=== PATIENT | male | born 1960 | race Caucasian/White ===

== ENCOUNTER 2017-06-26 17:09 | Emergency (ER) | payer OTHER ==
[2017-06-26 17:23] VITALS: BP 122/82
--- NOTE | 2017-06-26 17:37 | UC ---
Hand/Wrist HPI - HPI Summary HPI Summary: right thumb injury about 6 days ago--small laceration near thumb nail - History Of Current Complaint Chief Complaint: UCUpperExtremity Stated Complaint: THUMB INJURY INFLAMMATION Time Seen by Provider: 06/26/17 17:36 Hx Obtained From: Patient ?: No Mechanism Of Injury: unsure Onset/Duration: Sudden Onset, Lasting Days - 6 Severity Initially: Mild Severity Currently: Mild Character Of Pain: Throbbing Aggravating Factor(s): Movement Alleviating Factor(s): Nothing Associated Signs And Symptoms: Positive: Redness Related History: Dominant Hand Right - Allergies/Home Medications Allergies/Adverse Reactions: Allergies Allergy/AdvReac Type Severity Reaction Status Date / Time Ciprofloxacin [From Cipro] Allergy Unknown Verified 06/26/17 17:23 Reaction Details Levofloxacin [From Levaquin] Allergy Unknown Verified 06/26/17 17:23 Reaction Details Moxifloxacin [From Avelox] Allergy Unknown Verified 06/26/17 17:23 Reaction Details PMH/Surg Hx/FS Hx/Imm Hx Previously Healthy: Yes - Surgical History Surgical History: Yes Surgery Procedure, Year, and Place: sinus surgery - Family History Known Family History: Positive: None - Social History Occupation: Employed Full-time Lives: With Family Alcohol Use: Rare Substance Use Type: None Smoking Status (MU): Never Smoked Tobacco Review of Systems Constitutional: Negative Skin: Negative Eyes: Negative ENT: Negative Respiratory: Negative Cardiovascular: Negative Gastrointestinal: Negative Genitourinary: Negative Motor: Negative Neurovascular: Negative Musculoskeletal: Arthralgia - right thumb pain Neurological: Negative Psychological: Negative Is Patient Immunocompromised?: No All Other Systems Reviewed And Are Negative: Yes Physical Exam Triage Information Reviewed: Yes Appearance: Well-Appearing, No Pain Distress, Well-Nourished Vital Signs: Initial Vital Signs Temp 97.1 F 06/26/17 17:18 Pulse 84 06/26/17 17:18 Resp 20 06/26/17 17:18 BP 122/82 06/26/17 17:18 Pulse Ox 100 06/26/17 17:18 Vital Signs Reviewed: Yes Eye Exam: Normal Eyes: Positive: Conjunctiva Clear ENT Exam: Normal ENT: Positive: Normal ENT inspection, Hearing grossly normal, Pharynx normal, TMs normal. Negative: Nasal drainage, Trismus, Muffled voice, Hoarse voice Dental Exam: Normal Neck exam: Normal Neck: Positive: Supple, Nontender, No Lymphadenopathy Respiratory Exam: Normal Respiratory: Positive: Chest non-tender, No respiratory distress, No accessory muscle use Cardiovascular Exam: Normal Cardiovascular: Positive: RRR, Pulses Normal, Brisk Capillary Refill Musculoskeletal Exam: Normal Musculoskeletal: Positive: Strength Intact, ROM Intact, No Edema Neurological Exam: Normal Neurological: Positive: Alert, Muscle Tone Normal Psychological Exam: Normal Skin Exam: Other Skin: Positive: Other - small open area near right thumb nail Diagnostics - Radiology No standard instances Xray Interpretation: No Acute Changes Radiology Interpretation Completed By: ED Physician, Radiologist Hand/Wrist Course/Dx - Course Course Of Treatment: up date tetanus, warm soaks, add keflex if fails to improve or worsens with warm soaks follow with pcp - Differential Dx/Diagnosis Provider Diagnoses: Right thumb paronychia Discharge - Discharge Plan Condition: Stable Disposition: HOME Prescriptions: Cephalexin CAP* [Keflex CAP*] 500 mg PO QID #20 cap Patient Education Materials: Paronychia (ED), Warm Compress or Soak (ED) Referrals: Yuki Castaneda MD [Primary Care Provider] - If Needed
[2017-06-26] MEDS ORDERED: Tetan/Diph/Pertus SYR(Tdap)* 0.5 ML SYR(BOOSTRIX) use SYR IM ONE (17:47)
--- NOTE | 2017-06-26 18:28 | RAD ---
INDICATION: Cut to distal right 6 days earlier while working on car. Concern for foreign body. COMPARISON: None TECHNIQUE: 3 views of the right thumb were obtained. FINDINGS: No subcutaneous foreign body is identified. The bones are normal alignment. Joint spaces appear maintained. No fracture is seen. IMPRESSION: No foreign body or acute fracture or dislocation.
== END 2017-06-26 18:46 | disposition home or self-care (01) ==
LOC: UCEAST 17:09
DX: L03.011 Cellulitis of right finger (principal); Z23 Encounter for immunization; Z88.1 Allergy status to other antibiotic agents
CPT/HCPCS: 90471; 90715; 99212; G0463

== ENCOUNTER 2017-07-27 16:15 | Emergency (ER) | payer OTHER ==
[2017-07-27] MEDS ORDERED: predniSONE TAB* 20 MG PO ONE (19:35)
[2017-07-27] MEDS ORDERED: hydrOXYzine HCL TAB* 50 MG PO ONE (19:36)
[2017-07-27 20:14] VITALS: BP 113/84
--- NOTE | 2017-07-27 20:15 | ED ---
Jesus Alberto Dwyer Julia, scribed for Uriel Montoya MD on 07/27/17 at 1933 . Skin Complaint - HPI Summary HPI Summary: This patient is a 56 year old M presenting to [facility] with a chief complaint of pruritic and burning rash to the hands, chest, inguinal creases, and neck for the past ten days worsening last night, now spreading under armpits and scalp. Patient reports mild swelling to the face, and some leg cramping. He reports symptoms improved on 07/24/17 but have returned again. Pt reports a history of fungal infections after using medicinal herbs. He takes vitamins B12, C, and D regularly with out recent change. He is unaware of any allergies that he has. He recently saw his PCP and was given Cephalexin for the past two weeks, that was just finished a few days ago. - History of Current Complaint Chief Complaint: EDRashSkinAbscess Time Seen by Provider: 07/27/17 19:18 Stated Complaint: RASH Hx Obtained From: Patient Onset/Duration: Started Weeks Ago, Still Present, Worse Since - last night Skin Exposure Onset/Duration: Worse Since: - last night Timing: Constant Onset Severity: Worse Since: - last night Pain Intensity: 0 Pain Scale Used: 0-10 Numeric Skin Location: Face, Neck, Chest, Hand, Other: - inguinal creases Character: Swelling, Pruritus Associated Signs & Symptoms: Rash - Allergy/Home Medications Allergies/Adverse Reactions: Allergies Allergy/AdvReac Type Severity Reaction Status Date / Time MS Ciprofloxacin [From Cipro] Allergy Unknown Verified 06/26/17 17:23 Reaction Details MS Levofloxacin Allergy Unknown Verified 06/26/17 17:23 [From Levaquin] Reaction Details MS Moxifloxacin [From Avelox] Allergy Unknown Verified 06/26/17 17:23 Reaction Details PMH/Surg Hx/FS Hx/Imm Hx Endocrine/Hematology History: Denies: Hx Diabetes, Hx Thyroid Disease Cardiovascular History: Reports: Other Cardiovascular Problems/Disorders - PAC, PER ATRIAL CONTRACTIONS Denies: Hx Congestive Heart Failure, Hx Hypertension Respiratory History: Reports: Other Respiratory Problems/Disorders - SEASONAL ALLERGIES, SINUSITIS Denies: Hx Asthma, Hx Chronic Obstructive Pulmonary Disease (COPD) GI History: Denies: Hx Ulcer - Surgical History Surgery Procedure, Year, and Place: sinus surgery Infectious Disease History: No Infectious Disease History: Denies: Hx Clostridium Difficile, Hx Hepatitis, Hx Human Immunodeficiency Virus (HIV), Hx of Known/Suspected MRSA, Hx Shingles, Hx Tuberculosis, Hx Known/ Suspected VRE, Hx Known/Suspected VRSA, History Other Infectious Disease, Traveled Outside the [place] in Last 30 Days - Family History Known Family History: Negative: Cardiac Disease, Diabetes Family History: Mother is adopted - Social History Occupation: Employed Full-time - computer work Alcohol Use: Rare Substance Use Type: Reports: None Hx Tobacco Use: No Smoking Status (MU): Never Smoked Tobacco Review of Systems Positive: Other - facial swelling Positive: Myalgia - leg cramping Positive: Rash All Other Systems Reviewed And Are Negative: Yes Physical Exam - Summary Physical Exam Summary: VITAL SIGNS: Reviewed. GENERAL: Patient is a well-developed and nourished male who is lying comfortable in the stretcher. Patient is not in any acute respiratory distress. HEAD AND FACE: No signs of trauma. No ecchymosis, hematomas or skull depressions. No sinus tenderness. EYES: PERRLA, EOMI x 2, No injected conjunctiva, no nystagmus. Bilateral mild orbital swelling EARS: Hearing grossly intact. Ear canals and tympanic membranes are within normal limits. MOUTH: Oropharynx within normal limits. NECK: Supple, trachea is midline, no adenopathy, no JVD, no carotid bruit, no c- spine tenderness, neck with full ROM. CHEST: Symmetric, no tenderness at palpation LUNGS: Clear to auscultation bilaterally. No wheezing or crackles. CVS: Regular rate and rhythm, S1 and S2 present, no murmurs or gallops appreciated. ABDOMEN: Soft, non-tender. No signs of distention. No rebound no guarding, and no masses palpated. Bowel sounds are normal. EXTREMITIES: FROM in all major joints, no edema, no cyanosis or clubbing. NEURO: Alert and oriented x 3. No acute neurological deficits. Speech is normal and follows commands. SKIN: Dry and warm, diffuse scarlet maculopapular rash that is pruitic Triage Information Reviewed: Yes Vital Signs On Initial Exam: Initial Vitals Temp Pulse Resp BP Pulse Ox 98 F 85 18 130/89 97 07/27/17 16:30 07/27/17 16:30 07/27/17 16:30 07/27/17 16:30 07/27/17 16:30 Vital Signs Reviewed: Yes Diagnostics - Vital Signs Vital Signs Temp Pulse Resp BP Pulse Ox 07/27/17 16:30 98 F 85 18 130/89 97 - Laboratory Lab Statement: Any lab studies that have been ordered have been reviewed, and results considered in the medical decision making process. Course/Dx - Course Course Of Treatment: Patient presents with pruritic burning rash to the hands, chest, inguinal creases, and neck for the past ten days worsening last night, now spreading under armpits and scalp. Patient reports mild swelling to the face. He states he is unaware of any allergies he has. Patient's rash is diffuse and pruitic.Pt most likely has allergic reaction. He is given a prescription for prednisone and Atarax. He is instructed to find a dermatoligist. - Diagnoses Provider Diagnoses: Allergic reaction Discharge - Discharge Plan Condition: Stable Disposition: HOME Prescriptions: hydrOXYzine HCL TAB* [Atarax TAB 50 MG *] 50 mg PO TID PRN #20 tab PRN Reason: Itching predniSONE TAB* [Deltasone TAB*] 40 mg PO DAILY #14 tab Patient Education Materials: General Allergic Reaction (ED) Referrals: Yuki Castaneda MD [Primary Care Provider] - 2 Days Additional Instructions: I recommend that you find a community health nurse for further issues. RETURN TO THE EMERGENCY DEPARTMENT FOR CHANGING OR WORSENING SYMPTOMS. The documentation as recorded by the Jesus Alberto carrillo Julia accurately reflects the service I personally performed and the decisions made by me, Uriel Montoya MD.
== END 2017-07-27 20:18 | disposition home or self-care (01) ==
LOC: ED 16:15
DX: T78.40XA Allergy, unspecified, initial encounter (principal); Z88.3 Allergy status to other anti-infective agents; Z88.8 Allergy status to other drugs, medicaments and biological substances
CPT/HCPCS: 99281; A9270-GY; J7512

== ENCOUNTER 2018-07-03 16:32 | Emergency (ER) | payer OTHER ==
--- NOTE | 2018-07-03 16:53 | ED ---
HPI Chest Pain - HPI Summary HPI Summary: Patient is a 57 y/o M presenting to ED with complaints of chest pain. In triage , nurse Amarilis reports that patient had pulse of 188 was with a good plethysmography. However on EKG done immediately after triage, patient is NSR with 91. Pt was unaware of any change in heart rate from triage to EKG. In room , he states that he has had chest pain going back a couple of months ago, reports several episodes. Two days ago, he had "grabbing" chest pain. Today, patient has chest discomfort and burning sensation at left arm. He states that he does not feel tachycardic, no palpitations. No calf pain is reported, but notes some slight ankle swelling. Dr. Malloy is alteration hand, he has PACs. Last saw Dr. Malloy 10 years ago, states he called Dr. Malloy's office today and was advised to come to ED. Patient thought at first Sx were PACs but more intense but states that he now thinks they are slightly different. No SOB at rest reported, but he notes that he would be SOB after climbing a flight of stairs. Denies chest pain with exertion. He denies Hx of afib, last stress test, echo was ten years ago. Patient is scheduled for sinus surgery next week. No medications, PSHx of sinus surgery, FMHx of cardiac disease, mother had heart murmur, pulmonary embolism, father with aortic valve problems. On triage, pain is denied, nothing is noted to aggravate/alleviate Sx. Home medications "vitamins and herbs" and allergies are reviewed. Home Medications NK [No Home Medications Reported] 07/03/18 [History Confirmed 07/03/18] Allergies Allergy/AdvReac Type Severity Reaction Status Date / Time ciprofloxacin Allergy Unknown Verified 07/03/18 16:52 Reaction Details levofloxacin [From Levaquin] Allergy Unknown Verified 07/03/18 16:52 Reaction Details moxifloxacin [From Avelox] Allergy Unknown Verified 07/03/18 16:52 Reaction Details - History of Current Complaint Chief Complaint: EDChestPainROMI Time Seen by Provider: 07/03/18 16:45 Hx Obtained From: Patient, Other: - Dr. Malloy by phone conveys chart info by phone upon pt's initial presentation to ED. Dr. Malloy not asked to consult as pt is just presenting, and Dr. Malloy is not applications support engineer. Onset/Duration: Started Hours Ago - today, chest pain and left arm burning sensation, Started Days Ago - two days ago chest pain, Started Weeks Ago - multiple episodes of chest discomfort in past weeks, "grabbing", Still Present Timing: Constant, Lasting Hours - today, chest pain and left arm burning sensation, Lasting Days - two days ago chest pain Initial Severity: Mild Current Severity: Mild - 2/10 Pain Intensity: 2 Pain Scale Used: 0-10 Numeric - 2/10 Chest Pain Location: Left Anterior Chest Pain Radiates: Yes Chest Pain Radiates To:: Arm - left arm Character: Other: - grabbing Aggravating Factor(s): Nothing Alleviating Factor(s): Nothing Associated Signs and Symptoms: Positive: Chest Pain, Shortness of Breath - with exertion, Swelling - ankles, Other: - left arm burning sensation. Negative: Palpitations, Calf Pain/Swelling - Allergy/Home Medications Allergies/Adverse Reactions: Allergies Allergy/AdvReac Type Severity Reaction Status Date / Time ciprofloxacin Allergy Unknown Verified 07/03/18 16:52 Reaction Details levofloxacin [From Levaquin] Allergy Unknown Verified 07/03/18 16:52 Reaction Details moxifloxacin [From Avelox] Allergy Unknown Verified 07/03/18 16:52 Reaction Details Home Medications: Home Medications NK [No Home Medications Reported] 07/03/18 [History Confirmed 07/03/18] PMH/Surg Hx/FS Hx/Imm Hx Endocrine/Hematology History: Denies: Hx Diabetes, Hx Thyroid Disease Cardiovascular History: Reports: Hx Supraventricular Ventricular Tachycardia - in [address] Malloy, one 10-beat run of SVT, PAC's and PVC's , Other Cardiovascular Problems/Disorders - PAC's per pt Denies: Hx Congestive Heart Failure, Hx Hypertension Respiratory History: Reports: Hx Sleep Apnea - does not use CPAP , Other Respiratory Problems/Disorders - SEASONAL ALLERGIES, SINUSITIS Denies: Hx Asthma, Hx Chronic Obstructive Pulmonary Disease (COPD) GI History: Reports: Hx Gastroesophageal Reflux Disease Denies: Hx Ulcer - Surgical History Surgery Procedure, Year, and Place: sinus surgery Infectious Disease History: No Infectious Disease History: Denies: Hx Clostridium Difficile, Hx Hepatitis, Hx Human Immunodeficiency Virus (HIV), Hx of Known/Suspected MRSA, Hx Shingles, Hx Tuberculosis, Hx Known/ Suspected VRE, Hx Known/Suspected VRSA, History Other Infectious Disease, Traveled Outside the [place] in Last 30 Days - Family History Known Family History: Positive: Cardiac Disease - mother had heart murmur, pulmonary embolism, father w Ao valve probs Negative: Diabetes Family History: Mother is adopted - Social History Occupation: Employed Full-time Lives: Alone Alcohol Use: Rare Substance Use Type: Reports: None Hx Tobacco Use: No Smoking Status (MU): Never Smoked Tobacco Review of Systems Constitutional: Negative Positive: Chest Pain. Negative: Palpitations Positive: Shortness Of Breath - with exertion Gastrointestinal: Negative Positive: no symptoms reported Positive: Edema - ankles , Other - NEGATIVE - CALF PAIN; POSITIVE - LEFT ARM BURNING SENSATION Skin: Negative Neurological: Negative Psychological: Normal All Other Systems Reviewed And Are Negative: Yes Physical Exam - Summary Physical Exam Summary: Appearance: Well-appearing, minimal pain distress, well-nourished Skin: Warm, color reflects adequate perfusion, dry Head: Normal Head/Face inspection, atraumatic Eyes: Conjunctiva clear, ENT: Normal inspection Neck: Supple, no nodes, no JVD Respiratory: Lungs clear, normal breath sounds, no respiratory distress Cardio: RRR, No murmur, pulses normal, brisk capillary refill Abdomen: Soft, nontender Bowel sounds: Present Musculoskeletal: Strength Intact/ROM intact, no calf tenderness, no edema. Psychological: Normal Neuro: Alert, muscle tone normal, no focal deficit Triage Information Reviewed: Yes Vital Signs On Initial Exam: Initial Vitals Temp Pulse Resp BP Pulse Ox 97.1 F 188 16 131/83 99 07/03/18 16:33 07/03/18 16:33 07/03/18 16:33 07/03/18 16:33 07/03/18 16:33 Vital Signs Reviewed: Yes Diagnostics - Vital Signs Vital Signs Temp Pulse Resp BP Pulse Ox 07/03/18 16:33 97.1 F 188 16 131/83 99 - Laboratory Result Diagrams: 07/03/18 17:34 07/03/18 17:34 Lab Statement: Any lab studies that have been ordered have been reviewed, and results considered in the medical decision making process. - Radiology CXR Radiology Interpretation Completed By: Radiologist Summary of Radiographic Findings: IMPRESSION: No radiographic evidence for acute cardiopulmonary abnormality on this. portable chest x-ray. This report was reviewed by ED physician. - EKG 1636 Cardiac Rate: NL - rate of 91 BPM EKG Rhythm: Sinus Rhythm ST Segment: Non-Specific Ectopy: None EKG Comparison: No Significant Change - compared to 11/19/16 EKG Summary of EKG Findings: EKG showed sinus rhythm with rate of 91 BPM, nml AV, IV (112), nml QTc, nml axis. No ectopy, non-specific ST. No acute changes. No signficant changes compared to 11/19/16 EKG Re-Evaluation - Re-Evaluation First Eval Re-Evaluation Time: 19:14 Change: Unchanged Comment: In room, pulse ranges from 80s to 110s with sinus rhythm, o2 99, BP 114 /82. Pt notes that he feels his heart is going a bit faster than previously. Chest tightness is noted still be slightly present, some slight ache at left arm is reported as well which he rates 1/10. No Hx of HTN reported. Never smoked cigarettes. Second Eval Re-Evaluation Time: 23:40 Change: Unchanged Comment: BP is 131/102, 150/120, pulse 93, he reports that he is pain free. Elevated BP's showing just at this time before discharge, manual BP's not elevated per Makeda BURRELL. Chest Pain Course/Dx - Course Course Of Treatment: Patient is a 57 y/o M presenting to ED with complaints of chest pain. In triage, nurse Amarilis reports that patient had pulse of 180 was with a good plethysmography. However on EKG patient is NSR with 91. In room, he states that he has had chest pain going back a couple of months ago, reports several episodes. Two days ago, he had "grabbing" chest pain. Today, patient has chest discomfort and burning sensation at left arm. He states that he does not feel tachycardic, no palpitations. No calf pain is reported, but notes some slight ankle swelling. Pt states Dr. Malloy is his alteration hand, he has PACs. Last saw Dr. Malloy 10 years ago, states he called Dr. Malloy's office today and was advised to come to ED. Patient thought at first Sx were PACs but more intense but states that he now thinks they are slightly different. No SOB at rest reported, but he notes that he would be SOB after climbing a flight of stairs. Denies chest pain with exertion. He denies Hx of afib, last stress test , echo was ten years ago. Patient is scheduled for sinus surgery next week. No medications, PSHx of sinus surgery, FMHx of cardiac disease, mother had heart murmur, pulmonary embolism, father with aortic valve problems. Dr. Malloy was contacted with regards to patient's case at 1653. Patient was last seen by Dr. Malloy in 2008. Patient had Dx of sleep apnea, using cpap, nasal steroids, had GERD. Dr. Malloy did stress test, no ischemia, he exercised for ten minutes, reached the level of JUNITO 15. In 2007, he wore a Holter, had ten beats of SVT at rate of 119. He also had an event rhythm with sinus rhythm and sinus tachycardia. Discussed pt with Dr. Malloy upon pt's inital presentation for past medical history. Dr. Malloy not consulted on pt's care, as Dr. Malloy not applications support engineer. Cardiology consult not deemed necessary during hospital course as pt remained chest pain free and had zero troponins x 3. In room, Pt's pulse ranges from 80s to 110s with sinus rhythm, o2 99, BP 114/82. He notes that he feels his heart is going a bit faster than previously. Chest tightness is noted still be slightly present, some slight ache at left arm is reported as well which he rates 1/10 but overall states he does not consider this chest discomfort. No Hx of HTN reported. Never smoked cigarettes. CXR IMPRESSION: No radiographic evidence for acute cardiopulmonary abnormality on this. portable chest x-ray. EKG showed sinus rhythm with rate of 91 BPM, nml AV, IV (112), nml QTc, nml axis. No ectopy, non-specific ST. No acute changes. No signficant changes compared to 11/19/16 EKG. D-dimer < 200, TSH 1.14, T4 6.72, CK-MB 2.7. First trop was 0, second was 0, third was 0. During ED course, patient was given ASA 324 mg PO. BP is 131/102, 150/120, pulse 93, he reports that he is pain free. Patient given Lopressor 12.5 mg IV for tachycardia and possible HTN, although Makeda RN states pt's manual BP's are not elevated. Patient will be discharged to home, but advised that he needs urgent further evaluation especially prior to sinus surgery. He is agreeable with this plan. - Chest Pain Differential Diagnosis/HQI/PQRI: Acute SC, ACS, Angina, GI Disease, Pulmonary Embolism - Diagnoses Provider Diagnoses: Chest pain, Palpitations, Elevated BP without diagnosis of hypertension - Provider Notifications Discussed Care Of Patient With: Reynaldo Malloy Time Discussed With Above Provider: 16:53 Instructed by Provider To: Other - Dr. Malloy was contacted with regards to patient's case at 1653 for prior hx recorded in his office records. Dr. Malloy was not consulted regarding pt's ED evaluation or care in the ED today. Dr. Malloy is not applications support engineer. Patient was last seen by Dr. Malloy in 2008. Patient had Dx of sleep apnea, using cpap, nasal steroids, had GERD. Dr. Malloy did stress test, no ischemia, he exercised for ten minutes, reached the level of JUNITO 15. In 2007, he wore a Holter, had ten beats of SVT at rate of 119. He also had an event rhythm with sinus rhythm and sinus tachycardia. He recommends full workup as indicated, and consult cardiology applications support engineer as needed. Discharge - Sign-Out/Discharge Documenting (check all that apply): Patient Departure - discharge - Discharge Plan Condition: Stable Disposition: HOME Patient Education Materials: Chest Pain (ED), Heart Palpitations (ED) Referrals: Reynaldo Malloy MD [Medical Doctor] - As Soon As Possible Whitney Anton MD [Medical Doctor] - As Soon As Possible (follow up regarding your sleep apnea as soon as possible ) Yuki Castaneda MD [Primary Care Provider] - 1 Day [facility] [Outside] - 1 Day (follow up with this clinic in the morning, if you are not able to see Dr. Castaneda on Saturday07/04/18 to determine if you need further evaluation. ) Additional Instructions: You have three troponin levels that were zero. You did not have an elevated d dimer that might have indicated a possible blood clot. Your EKG was normal. Your symptoms resolved while you were in the ER. You had a few automated cuff blood pressures that were elevated at the time of discharge, but the manual blood pressure readings were not abnormal. Dr. Shultz gave you one dose of metroprolol tartrate 12.5mg at 11:45pm for the elevated blood pressure and tachycardia. She did not prescribe additional metoprolol. When you were first triaged you have a heart rate of 188, that our triage nurse observed a good plethysmography, so we believe that heart rate as documented. However, the EKG done immediately afterward showed only a heart rate of 91. You never had any other heart rates greater than 110 while you were in the ER. Dr. Shultz recommends that you should resume using your CPAP machine and be re- evaluated for your sleep apnea. She also recommends that you need to be seen of Saturday07/04/18 to determine if you need further evaluation of your tachycardia and chest pain. Return to the ER if you have any new or worsening symptoms. - Billing Disposition and Condition Condition: STABLE Disposition: Home - Attestation Statements Document Initiated by Av: Yes Documenting Scribe: ALICIA PIÑA Provider For Whom Av is Documenting (Include Credential): JW SHULTZ MD Scribe Attestation: ALICIA Dwyer scribed for JW SHULTZ MD on 07/04/18 at 2041. Scribe Documentation Reviewed: Yes Provider Attestation: The documentation as recorded by the ALICIA carrillo accurately reflects the service I personally performed and the decisions made by me, JW SHULTZ MD Status of Scribe Document: Viewed
[2018-07-03] MEDS ORDERED: Aspirin 81 mg CHEW TAB* 81 MG TAB.CHEW PO ONE (17:02)
--- OUTSIDE RECORDS SUMMARY | 2018-07-03 17:08 | XMS REPORT | Continuity of Care Document ---
:1960 External Reference #:[id number] Author Name BaltazarMihir nguyen Care Team Providers Name Role Phone James Anne MD Primary Care Physician Unavailable Payers Type Date Identification Numbers Payment Provider Subscriber Policy Number: [id number] [employer] Number: [id number] [id number] PayID: [id number] [place] [address] Advance Directives Description No Information Available Problems Date Description Provider Status Onset: 12/30/2008 Insomnia Keiry Franco M.D.,FACP Onset: 12/30/2008 Chronic interstitial cystitis Keiry Franco M.D.,FACP Onset: 12/30/2008 Irritable bowel syndrome Keiry Franco M.D.,ELÍASP Onset: 01/16/2012 Obstructive sleep apnea syndrome Keiry Franco M.D.,FACP Onset: 01/16/2012 Diaphragmatic hernia Keiry Franco M.D.,FACP Onset: 10/11/2014 Onychomycosis Mega Mosquera M.D. Active Onset: 10/11/2014 Gastroesophageal reflux disease Mega Mosquera M.D. Active Onset: 03/03/2018 Closed fracture of phalanx of Narendra Mcrae MD Active foot Onset: 07/16/2014 Dermal mycosis Mega Mosquera M.D. Inactive Inactive: 11/30/2014 Onset: 10/11/2014 Malaise and fatigue Mega Mosquera M.D. Inactive Inactive: 11/30/2014 Onset: 10/11/2014 Acute prostatitis Mega Mosquera M.D. Inactive Inactive: 11/30/2014 Family History Date Family Member(s) Problem(s) Comments Father Alive And Well episodes of syncope in the past. resolved with cutting back on caffeine. Father Alzheimer's Disease Mother Mental Illness Mother Thyroid Disease Mother Alzheimer's Disease Mother Migraine Children None Siblings 3 brothers Siblings 1 sister Social History Type Date Description Comments Sex Unknown Marital Status Single Lives With Alone Occupation computer currently working at [employer] Tobacco Use Start: Unknown Never Smoked Cigarettes ETOH Use 10/26/2013 Denies alcohol use Tobacco Use Start: Unknown Patient has never smoked Smoking Status Reviewed: 06/18/18 Patient has never smoked Exercise irregular exercise Type/Frequency Allergies, Adverse Reactions, Alerts Date Description Reaction Status Severity Comments 07/06/2009 Avelox Active chronic tendonitis: No Fluoroquinolones 05/31/2011 Ciprofloxacin Active tendonitis 06/17/2012 Quinolones tendonitits Active 10/26/2013 Levaquin Active Medications Medication Date Status Form Strength Qnty SIG Indications Ordering Provider Magnesium 02/02/ Active Tablets 400mg 785.1 James Anne M.D.,FACP Cpap / Active qhs Unknown 0000 Acidophilus / Active Capsules 1 by Unknown 0000 mouth every day Vitamin D / Active Capsules 1000Unit by mouth Unknown 0000 every day Vitamin C / Active Chewtabs 500mg 1 by Unknown 0000 mouth every day Saw Clyde / Active Capsules 160mg 1 bid Unknown 0000 Milk Thistle / Active Capsules 175mg Unknown 0000 Vitamin B12 / Active Unknown 0000 Amoxicillin 10/12/ Hx Tablets 500mg 20tab take 1 J02.9 Flavio 2017 - s tablet by ROE Wheatley 10/24/ mouth 2017 twice a day for 10 days Xifaxan 10/12/ Hx Tablets 550mg 63tab 1 by K58.0 Flavio 2016 - s mouth ROE Wheatley 10/20/ three 2017 times a day for 3 wks Belsomra 02/02/ Hx Tablets 10mg 10tab 1 by 780.52 James 2014 - s kate Anne 10/12/ every M.D.,FACP 2017 night at bedtime (patient bringing coupon) Lansoprazole 02/02/ Hx Capsules DR 30mg 30cap 1 by 530.81 James 2014 mouth [place]. [place], 10/12/ every day M.D.,FACP 2017 Clobetasol 11/30/ Hx Ointment 0.05% 30g topical 691.8 James Propionate 2014 - every day D. [place], 10/12/ as needed M.D.,FACP 2017 Doxycycline 11/19/ Hx Capsules 100mg 14cap 1 tab by 780.79 Manuel Hyclate 2014 mouth Flaherty, ENERGY CONSERVATION REPRESENTATIVE 11/30/ twice a 2015 day x 7 days Clotrimazole/Bet 11/19/ Hx Cream 1-0.05% 50m apply 691.8 Manuel amethasone 2014 - twice a Flaherty, ENERGY CONSERVATION REPRESENTATIVE Dipropionate 11/30/ day to 2015 affected areas Sulfamethoxazole 10/11/ Hx Tablets 800-160mg 28tab 1 by 601.0 Mega /Trimethoprim DS 2014 mouth [place], 10/25/ twice a M.D. 2014 day Pantoprazole 10/11/ Hx Tablets DR 40mg 30tab 1 in the 530.81 [place] Sodium 2014 morning [place], 02/02/ empty M.D. 2014 stomach Tamiflu 07/16/ Hx Capsules 75mg 10cap twice a 487.1 [place] 2014 day P[place], 10/11/ M.D. 2014 Ketoconazole 07/16/ Hx Cream 2% 50gm apply 111.9 Mega 2014 - twice a [place], 11/30/ day M.D. 2015 Xifaxan 02/02/ Hx Tablets 550mg 42tab 1 by James 2013 - mouth two D. [place], 04/20/ times a M.D.,FACP 2013 day for 3 wks Zyrtec Allergy 12/24/ Hx Capsules 10mg 30cap by mouth 466.0 James 2013 - s every day D. [place], 04/20/ M.D.,FACP 2013 Nasonex 12/24/ Hx Suspension 50mcg/Act 1Mon 1 spray 466.0 James 2013 - gregory each D. [place], 04/20/ side M.D.,FACP 2014 every day Asmanex 14 12/24/ Hx Aerosol 220mcg/In 1mont every day 466.0 James Metered Doses 2013 - h h Timothy Anne, 04/20/ M.D.,FACP 2013 Xifaxan 10/26/ Hx Tablets 550mg 63tab 1 by 564.1 James 2013 - s mouth DSarahi Anne, 12/24/ three M.D.,FACP 2014 times a day for 3 wks Omnaris 05/27/ Hx Suspension 50mcg/Act 12.5u spray one James 2012 - nits spray in D. Dayana, 10/26/ each M.D.,FACP 2014 nostril every day Omeprazole 06/24/ Hx Capsules DR 40mg 30cap Take One James 2012 - s Capsule Timothy Anne, 04/20/ By Mouth M.D.,FACP 2014 Once Daily as Needed Guaifenesin/Code 03/10/ Hx Syrup 100-10mg/ 118ml 1-2 tsp 786.2 Sussy ine 2012 - 5ML po q 4 h Hern[place], .D. 2012 Omeprazole 01/15/ Hx Capsules DR 20mg 30cap 1 po qd James 2011 - Timothy Anne, .D.,FACP 2013 Vitamin C 05/31/ Hx Powder 500mg powder James 2010 - Timothy Anne, .D.,FACP 2011 Omeprazole 05/31/ Hx Capsules DR 40mg 30cap 1 po qd James 2010 Timothy Anne, .D.,FACP 2011 Alfuzosin HCL ER 05/31/ Hx Tablets ER 10mg 1 daily James 2010 - 24HR Timothy Anne, .D.,FACP 2014 Contour Blood 05/31/ Hx Kit w/Device 1unit as 078.2 James Glucose 2010 - directed Timothy Anne, Monitoring .D.,FACP System 2013 Clarithromycin 09/06/ Hx Tablets 500mg 14tab 1 po bid 466.0 Keron Adams 2010 - s for 7 Sheryl, 05/11/ days M.D. 2010 Avodart 06/28/ Hx Capsules 0.5mg 30cap 1 po qd James 2010 - s Timothy Anne, M.D.,FACP 2011 Sulfamethoxazole 07/06/ Hx Tablets 800-160mg 20tab 1 tab po 786.2 Sussy -TMP DS 2009 - s bid for Cotton, days M.D. 2009 Amoxicillin-Pot 05/12/ Hx Tablets 875-125mg 20tab po bid 382.02 Shameka Welch Clavulanate 2008 - s for 10 D. Dayana, 07/06/ days M.D.,FACP 2010 Nasacort Aq 01/13/ Hx Aerosol 55mcg/Act 1mon 2 sprays 471.9 James 2008 - in each Timothy Anne, 06/28/ nostril M.D.,FACP 2011 every day Coq10 12/30/ Hx Capsules 100mg 1Bott 2 po qd James 2008 - indio Anne, M.D.,FACP 2011 Fish Oil 12/30/ Hx Oil 1000mg 1 po qd James Anne, M.D.,FACP 2011 Acidophilus 12/30/ Hx Tablets qd James 2008 Alina Anne, M.D.,FACP 2011 Trazodone HCL 12/30/ Hx Tablets 50mg 30tab 1/2-1 qhs 780.52 James 2008 Alina Anne, M.D.,FACP 2010 Veramyst 12/30/ Hx Suspension 27.5mcg/S 1mon qd nasal 471.9 James Alcocer - pray samples Timothy Anne, M.D.,FACP 2009 Omeprazole 05/31/ Hx Capsules DR 20mg 30cap 1 PO qod Reynaldo 2008 - s Pennie Malloy, M.D. 2010 Vitamins 08/27/ Hx Tablets 30tab 1 PO qd Reynaldo Dsouza 2005 - s Pennie Malloy, M.D. 2011 Many Guatemalan 08/27/ Hx Solution Reynaldo Herbs 2005 - Pennie Malloy, M.D. 2011 Nasonex / Hx Suspension 50mcg/Act 1Mon 1 spray Unknown 0000 - gregory each qd 2008 Uroxatral 00/00/ Hx Tablets ER 10mg qd Unknown 0000 - 24HR 2010 Omeprazole /00/ Hx Capsules DR 40mg 90cap 1 po qd James 0000 - s DSarahi Anne, 05/11/ MDoris,[facility] 2010 B Vitamins 00/00/ Hx Unknown - 2010 Digestive 00/00/ Hx Unknown Enzymes - 2010 Vitamin C 00/00/ Hx Tablets 1000mg 30tab 2 po qd Unknown 0000 - s 2010 Cranberry /00/ Hx Capsules Unknown Extract - 2010 Azithromycin 00/00/ Hx Tablets 250mg 6tabs two tabs Sussy 0000 - on day , , then M.D. 2012 one daily till gone Dextromethorphan 00/ Hx Solution 20-200mg/ bid Unknown /Guaifenesin 0000 - 10ML 2012 Nexium /00/ Hx Capsules DR 40mg 30cap 1 by Unknown 0000 - s mouth 10/11/ every day 2014 Famotidine 0000/ Hx Tablets 40mg 30tab take one Unknown 0000 - s tablet by 10/12/ mouth 2016 daily Vitamin B12 0000/ Hx Tablets 1000mcg 1 by Unknown 0000 - mouth 07/16/ every day 2014 Immunizations CPT Code Status Date Vaccine Lot # [id number] Given 04/21/2014 Flu Vaccine Split Virus Preservative Free For [id number] Indiv 3Yr Older 47126 Given 06/28/2010 Flu Mist Vaccine, Live For Intranasal Use [id number] 31623 Given 05/12/2009 Influenza Virus Vaccine, Pandemic Formulation [id number] 25460 Given 05/12/2009 Administration Swine Flu Shot [id number] Refused 05/31/2011 Influenza Virus 3Yrs & Over Vital Signs Date Vital Result Comment 06/18/2018 2:03pm Height 75 inches 6'3" Weight 236.00 lb Respiratory Rate 16 /min Body Temperature 98.3 F Pain Level 0 BMI (Body Mass Index) 29.5 kg/m2 04/18/2018 11:29am Height 75 inches 6'3" Weight 236.00 lb Respiratory Rate 16 /min Pain Level 2 BMI (Body Mass Index) 29.5 kg/m2 03/03/2018 3:09pm Height 75 inches 6'3" Weight 236.00 lb Heart Rate 92 /min Respiratory Rate 18 /min Body Temperature 96.8 F Pain Level 3 BMI (Body Mass Index) 29.5 kg/m2 10/12/2016 11:41am Weight 244.25 lb Heart Rate 110 /min BP Systolic 122 mmHg BP Diastolic 80 mmHg Body Temperature 96.3 F O2 % BldC Oximetry 98 % 02/02/2015 12:10pm Height 75.75 inches 6'3.75" Weight 239.50 lb Heart Rate 88 /min BP Systolic Sitting 118 mmHg BP Diastolic Sitting 78 mmHg Body Temperature 97.6 F O2 % BldC Oximetry 98 % BMI (Body Mass Index) 29.3 kg/m2 11/30/2014 9:04am Height 75.75 inches 6'3.75" Weight 244.00 lb Heart Rate 90 /min BP Systolic Sitting 138 mmHg BP Diastolic Sitting 80 mmHg Body Temperature 98.9 F O2 % BldC Oximetry 98 % BMI (Body Mass Index) 29.9 kg/m2 11/19/2014 2:12pm Height 75.75 inches 6'3.75" Weight 239.00 lb Heart Rate 86 /min BP Systolic Sitting 118 mmHg BP Diastolic Sitting 70 mmHg Body Temperature 98.7 F O2 % BldC Oximetry 98 % BMI (Body Mass Index) 29.3 kg/m2 10/11/2014 1:11pm Height 75.75 inches 6'3.75" Weight 238.12 lb Heart Rate 74 /min BP Systolic Sitting 118 mmHg BP Diastolic Sitting 80 mmHg Body Temperature 97.6 F O2 % BldC Oximetry 99 % BMI (Body Mass Index) 29.2 kg/m2 07/16/2014 11:49am Height 75.75 inches 6'3.75" Weight 241.50 lb Heart Rate 96 /min BP Systolic Sitting 128 mmHg BP Diastolic Sitting 80 mmHg Body Temperature 96.2 F O2 % BldC Oximetry 98 % BMI (Body Mass Index) 29.6 kg/m2 04/28/2014 11:11am Height 75.75 inches 6'3.75" Weight 241.00 lb Heart Rate 88 /min BP Systolic Sitting 108 mmHg BP Diastolic Sitting 80 mmHg Body Temperature 96.7 F BMI (Body Mass Index) 29.5 kg/m2 04/21/2014 5:00pm Weight 247.25 lb Heart Rate 84 /min BP Systolic Sitting 123 mmHg BP Diastolic Sitting 83 mmHg Body Temperature 97.0 F O2 % BldC Oximetry 97 % 12/24/2013 11:42am Height 75 inches 6'3" Weight 236.75 lb Heart Rate 88 /min BP Systolic Sitting 114 mmHg BP Diastolic Sitting 88 mmHg Body Temperature 97.0 F BMI (Body Mass Index) 29.6 kg/m2 10/26/2013 4:13pm Height 74.75 inches 6'2.75" Weight 245.00 lb Heart Rate 86 /min BP Systolic Sitting 118 mmHg BP Diastolic Sitting 80 mmHg Body Temperature 96.4 F BMI (Body Mass Index) 30.8 kg/m2 06/24/2012 9:00am Height 74.75 inches 6'2.75" Weight 244.00 lb Heart Rate 80 /min BP Systolic Sitting 120 mmHg BP Diastolic Sitting 80 mmHg BMI (Body Mass Index) 30.7 kg/m2 06/17/2012 11:02am Height 74.75 inches 6'2.75" Weight 247.00 lb Heart Rate 96 /min BP Systolic Sitting 114 mmHg BP Diastolic Sitting 86 mmHg BMI (Body Mass Index) 31.1 kg/m2 03/10/2012 11:42am Height 75 inches 6'3" Weight 243.00 lb Heart Rate 80 /min BP Systolic Sitting 132 mmHg BP Diastolic Sitting 80 mmHg Body Temperature 98.6 F BMI (Body Mass Index) 30.4 kg/m2 02/14/2012 11:48am Height 75 inches 6'3" Weight 246.00 lb Heart Rate 82 /min BP Systolic Sitting 110 mmHg BP Diastolic Sitting 80 mmHg Body Temperature 96.8 F BMI (Body Mass Index) 30.7 kg/m2 01/16/2012 11:37am Height 75 inches 6'3" Weight 247.00 lb Heart Rate 80 /min BP Systolic Sitting 110 mmHg BP Diastolic Sitting 92 mmHg BMI (Body Mass Index) 30.9 kg/m2 06/14/2011 11:59am Height 75 inches 6'3" Weight 245.00 lb Heart Rate 80 /min BP Systolic Sitting 128 mmHg BP Diastolic Sitting 76 mmHg Body Temperature 97.7 F BMI (Body Mass Index) 30.6 kg/m2 05/31/2011 11:49am Height 75 inches 6'3" Weight 240.25 lb Heart Rate 100 /min BP Systolic Sitting 112 mmHg BP Diastolic Sitting 92 mmHg BMI (Body Mass Index) 30.0 kg/m2 05/11/2011 9:51am Height 75 inches 6'3" Weight 242.00 lb Heart Rate 76 /min BP Systolic Sitting 128 mmHg BP Diastolic Sitting 84 mmHg BMI (Body Mass Index) 30.2 kg/m2 10/27/2010 10:01am Body Temperature 96.7 F lt ear 09/06/2010 3:33pm Weight 247.00 lb Heart Rate 82 /min BP Systolic Sitting 116 mmHg BP Diastolic Sitting 90 mmHg Body Temperature 96.4 F Tympanically 06/28/2010 4:04pm Weight 248.00 lb Heart Rate 100 /min BP Systolic 116 mmHg BP Diastolic 90 mmHg Body Temperature 96.6 F 03/01/2010 1:41pm Weight 240.00 lb Heart Rate 88 /min BP Systolic Sitting 122 mmHg BP Diastolic Sitting 76 mmHg 02/07/2010 4:16pm Weight 249.00 lb Heart Rate 86 /min BP Systolic Sitting 140 mmHg BP Diastolic Sitting 94 mmHg Body Temperature 95.4 F tympanically 07/06/2009 1:22pm Weight 242.25 lb Heart Rate 84 /min BP Systolic Sitting 116 mmHg BP Diastolic Sitting 90 mmHg Respiratory Rate 16 /min Body Temperature 97.9 F 05/12/2009 11:41am Weight 245.00 lb Heart Rate 86 /min BP Systolic Sitting 107 mmHg BP Diastolic Sitting 72 mmHg Body Temperature 97.1 F O2 % BldC Oximetry 98 % 01/26/2009 11:35am Weight 239.00 lb Heart Rate 80 /min BP Systolic Sitting 112 mmHg BP Diastolic Sitting 70 mmHg Respiratory Rate 16 /min 12/30/2008 8:48am Height 75 inches 6'3" Weight 242.50 lb Heart Rate 84 /min BP Systolic Sitting 116 mmHg BP Diastolic Sitting 90 mmHg Respiratory Rate 16 /min BMI (Body Mass Index) 30.3 kg/m2 05/31/2008 2:19pm Height 73 inches 6'1" Weight 242.00 lb Heart Rate 100 /min BP Systolic Sitting 110 mmHg BP Diastolic Sitting 70 mmHg Respiratory Rate 16 /min BMI (Body Mass Index) 31.9 kg/m2 02/12/2008 9:48am Height 73 inches 6'1" Weight 233.00 lb Heart Rate 82 /min reg BP Systolic Sitting 124 mmHg BP Diastolic Sitting 70 mmHg BMI (Body Mass Index) 30.7 kg/m2 11/13/2007 8:44am Height 73 inches 6'1" Weight 233.00 lb Heart Rate 75 /min BP Systolic Sitting 104 mmHg L BP Diastolic Sitting 70 mmHg L BMI (Body Mass Index) 30.7 kg/m2 10/11/2006 3:04pm Height 73 inches 6'1" Weight 231.00 lb Heart Rate 77 /min BP Systolic Sitting 110 mmHg L BP Diastolic Sitting 80 mmHg L BP Systolic Standing 106 mmHg L BP Diastolic Standing 80 mmHg L BMI (Body Mass Index) 30.5 kg/m2 01/18/2006 1:53pm Height 73 inches 6'1" Weight 228.00 lb Heart Rate 106 /min BP Systolic Sitting 100 mmHg R BP Diastolic Sitting 70 mmHg R BP Systolic Standing 110 mmHg R BP Diastolic Standing 70 mmHg R BMI (Body Mass Index) 30.1 kg/m2 08/27/2005 3:50pm Height 73 inches 6'1" Weight 221.00 lb Heart Rate 97 /min BP Systolic Sitting 110 mmHg rt 120/80 BP Diastolic Sitting 72 mmHg rt 120/80 BP Systolic Standing 120 mmHg BP Diastolic Standing 80 mmHg BMI (Body Mass Index) 29.2 kg/m2 Results Test Date Facility Test Result H/L Range Note Laboratory test 10/12/2016 [facility] Culture Throat SEE RESULT [address] [place] [address] [phone] Laboratory test 10/12/2016 [employer] [facility] A negative finding Strep Laboratory test 04/15/2015 [facility] Lyme Disease Negative N Negative [address] [place] [address] [phone] Laboratory test 12/14/2014 [facility] Blood Culture SEE RESULT [address] [place] [address] [phone] CBC Auto Diff 12/14/2014 [facility] White Blood 6.8 10^3/uL N 4.8-10.[address] [place] [address] [phone] Red Blood Count 4.79 10^6/uL N 4.0-5.4 Hemoglobin 14.4 g/dL N 14.0-18.0 Hematocrit 43 % N 42-52 Mean Corpuscular Volume 91 fL N 80-94 Mean Corpuscular Hemoglobin 30 pg N 27-31 Mean Corpuscular HGB Conc 33 g/dL N 31-36 Red Cell Distribution Width 14 % N 10.5-15 Platelet Count 209 10^3/uL N 150-450 Mean Platelet Volume 8 um3 N 7.4-10.4 Abs Neutrophils 3.8 10^3/uL N 1.5-7.7 Abs Lymphocytes 2.0 10^3/uL N 1.0-4.8 Abs Monocytes 0.5 10^3/uL N 0-0.8 Abs Eosinophils 0.5 10^3/uL N 0-0.6 Abs Basophils 0.1 10^3/uL N 0-0.2 Abs Nucleated RBC 0.01 10^3/uL N Granulocyte % 55.1 % N 38-83 Lymphocyte % 29.1 % N 25-47 Monocyte % 6.7 % N 1-9 Eosinophil % 7.9 % High 0-6 Basophil % 1.2 % N 0-2 Nucleated Red Blood Cells % 0.1 N Laboratory test 12/14/2014 [facility] C Reactive < 1.00 N < 5.00 [address] Protein mg/[place] [address] [phone] PSA Diagnostic 0.535 ng/mL N 0-4.000 5 Comp Metabolic Panel 10/15/2014 Sodium 138 mmol/L N 133-145 Potassium 3.8 mmol/L N 3.5-5.0 Chloride 107 mmol/L N 101-111 Co2 Carbon Dioxide 25 mmol/L N 22-32 Anion Gap 6 mmol/L N 2-11 Glucose 90 mg/dL N 70-100 Blood Urea Nitrogen 15 mg/dL N 6-24 Creatinine 0.92 mg/dL N 0.67-1.17 BUN/Creatinine Ratio 16.3 N 8-20 Calcium 9.1 mg/dL N 8.6-10.3 Total Protein 6.3 g/dL Low 6.4-8.9 Albumin 4.3 g/dL N 3.2-5.2 Globulin 2.0 g/dL N 2-4 Albumin/Globulin Ratio 2.2 N 1-3 Total Bilirubin 0.60 mg/dL N 0.2-1.0 Alkaline Phosphatase 45 U/L N 34-104 Alt 10 U/L N 7-52 Ast 15 U/L N 13-39 Egfr Non- 85.7 N >60 Egfr 110.3 N >60 6 Laboratory test 10/15/2014 TSH (Thyroid 1.29 IU/mL N 0.34-5.60 finding Stimulating Horm) Urinalysis 10/15/2014 [facility] Urine Color Straw N Profile [address] [place] [address] [phone] Urine Appearance Clear N Urine Specific Glendo 1.008 Low 1.010-1.030 Urine pH 5.0 N 5-9 Urine Urobilinogen Negative N Negative Urine Ketones Negative N Negative Urine Protein Negative N Negative Urine Leukocytes Negative N Negative Urine Blood Negative N Negative * * Abnormal Negative 7 Urine Nitrite Negative N Negative Urine Bilirubin Negative N Negative Urine Glucose Negative N Negative Laboratory test 10/11/2014 [facility] Fungal Cult - SEE RESULT [address] [place] [address] [phone] Laboratory test 10/11/2014 [facility] Fungal Cult - SEE RESULT [address] [place] [address] [phone] Laboratory test 10/11/2014 [facility] Fungal Cult - SEE RESULT [address] [place] [address] [phone] Laboratory test 10/11/2014 [facility] Fungal Cult - SEE RESULT [address] [place] [address] [phone] Lipid Profile 04/26/2014 [facility] Triglycerides 51 mg/dL N 12, 13 (Trig/Chol/HDL) [address] [place] [address] [phone] Cholesterol 176 mg/dL N 14 HDL Cholesterol 45.4 mg/dL N 15 LDL Cholesterol 120 mg/dL N 16 Laboratory test 04/26/2014 [facility] Glucose 84 mg/dL N 70- 100 [address] [place] [address] [phone] Laboratory test 04/26/2014 [facility] C Reactive < 1.00 mg/L N < 5.00 [address] [place] [address] [phone] Erythrocyte Sed Rate 13 mm/Hr N 0-20 Lyme Disease Serology Negative N Negative 19 CBC Auto Diff 04/26/2014 [facility] White Blood 7.4 10^3/uL N 4.8-10.[address] [place] [address] [phone] Red Blood Count 4.87 10^6/uL N 4.0-5.4 Hemoglobin 14.5 g/dL N 14.0-18.0 Hematocrit 44 % N 42-52 Mean Corpuscular Volume 90 fL N 80-94 Mean Corpuscular Hemoglobin 30 pg N 27-31 Mean Corpuscular HGB Conc 33 g/dL N 31-36 Red Cell Distribution Width 14 % N 10.5-15 Platelet Count 227 10^3/uL N 150-450 Mean Platelet Volume 9 um3 N 7.4-10.4 Abs Neutrophils 4.4 10^3/uL N 1.5-7.7 Abs Lymphocytes 2.1 10^3/uL N 1.0-4.8 Abs Monocytes 0.5 10^3/uL N 0-0.8 Abs Eosinophils 0.2 10^3/uL N 0-0.6 Abs Basophils 0.1 10^3/uL N 0-0.2 Abs Nucleated RBC 0 10^3/uL N Granulocyte % 60.4 % N 38-83 Lymphocyte % 29.0 % N 25-47 Monocyte % 6.8 % N 1-9 Eosinophil % 2.9 % N 0-6 Basophil % 0.9 % N 0-2 Nucleated Red Blood Cells % 0 N Surgical 03/17/2014 [facility] S RUN DATE: [address] 03/18/ <[place] [address] NOTE> [phone] Clotest 03/17/2014 [facility] Clotest (SEE NOTE) [address] [place] [address] [phone] Laboratory test 11/09/2013 [facility] Erythrocyte Sed 8 mm/Hr N 0-[address] [place] [address] [phone] CBC With Manual 11/09/2013 [facility] White Blood Count 6.2 10^3 /uL N 4.8-[address] 0.8 [place] [address] [phone] Red Blood Count 4.73 10^6/uL N 4.0-5.4 Hemoglobin 14.2 g/dL N 14.0-18.0 Hematocrit 42 % N 42-52 Mean Corpuscular Volume 90 fL N 80-94 Mean Corpuscular Hemoglobin 30 pg N 27-31 Mean Corpuscular HGB Conc 34 g/dL N 31-36 Red Cell Distribution Width 14 % N 10.5-15 Platelet Count 209 10^3/uL N 150-450 Mean Platelet Volume 9 um3 N 7.4-10.4 Abs Neutrophils 3.5 10^3/uL N 1.5-7.7 Abs Lymphocytes 2.0 10^3/uL N 1.0-4.8 Abs Monocytes 0.3 10^3/uL N 0-0.8 Abs Eosinophils 0.3 10^3/uL N 0-0.6 Abs Basophils 0.1 10^3/uL N 0-0.2 Abs Nucleated RBC 0 10^3/uL N Neutrophil % 59 % N 38-83 Band % 1 % N 0-8 Lymphocytes % 30 % N 25-47 Monocytes % 4 % N 0-13 Eosinophils % 4 % N 0-6 Basophil % 1 % N 0-2 Reactive Lymph % 1 % N 0-6 RBC Morphology Normal N Normal Laboratory test 11/09/2013 [facility] CRP High 0.23 mg/L N 22 finding [address] [facility] [place] [place] [address] [phone] TSH (Thyroid Stimulating Horm) 1.71 IU/mL N 0.34-5.60 Hepatitis C Antibody Nonreactive N Nonreactive Lipid Profile 06/24/2012 [facility] Triglycerides 66 mg/dL 40 -200 (Trig/Chol/HDL) [address] [place] [address] [phone] Cholesterol 200 mg/dL Less than 200 HDL Cholesterol 50 mg/dL 40-60 23 Cholesterol/HDL Ratio 4.0 Average 1-4.44 LDL Cholesterol 136.8 mg/dL High Less Than 100 24 Laboratory test 06/24/2012 [facility] Glucose 92 mg/dL 70- [address] [place] [address] [phone] Vitamin D, 25 06/24/2012 [facility] 25-Hydroxy <4.0 ng/mL Hydroxy 101 [facility] Vitamin [place]2 [place] [address] [phone] 25-Hydroxy Vitamin D3 31 ng/mL 25-Hydroxy Vitamin D Total 31 ng/mL 25 CBC Auto Diff 06/24/2012 [facility] White Blood 6.5 10^3/uL 4.8-10.[address] [place] [address] [phone] Red Blood Count 4.75 10^6/uL 4.0-5.4 Hemoglobin 14.3 g/dL 14.0-18.0 Hematocrit 43 % 42-52 Mean Corpuscular Volume 90 fL 80-94 Mean Corpuscular Hemoglobin 30 pg 27-31 Mean Corpuscular HGB Conc 33 g/dL 31-36 Red Cell Distribution Width 14 % 10.5-15 Platelet Count 193 10^3/uL 150-450 Mean Platelet Volume 10 um3 7.4-10.4 Abs Neutrophils 3.8 10^3/uL 1.5-7.7 Abs Lymphocytes 1.9 10^3/uL 1.0-4.8 Abs Monocytes 0.4 10^3/uL 0-0.8 Abs Eosinophils 0.4 10^3/uL 0-0.6 Abs Basophils 0.1 10^3/uL 0-0.2 Abs Nucleated RBC 0.01 10^3/uL Granulocyte % 58.0 % 38-83 Lymphocyte % 28.4 % 25-47 Monocyte % 6.3 % 1-9 Eosinophil % 6.2 % High 0-6 Basophil % 1.1 % 0-2 Nucleated Red Blood Cells % 0.1 Laboratory test 06/24/2012 [facility] Vitamin B12 300 pg/mL [phone] [place] [address] [phone] TSH (Thyroid Stimulating Horm) 1.36 miu/mL 0.34-5.60 Laboratory test 06/14/2011 [facility] House Hemoglobin A1c 5.5 5-7 finding CBC With Manual 05/31/2011 [facility] White Blood Count 6.5 CUMM 4.8-10.[address] [place] [address] [phone] Red Cell Count 4.60 CUMM 4.6-6.2 Hemoglobin 14.1 g/dL 14.0-18.0 Hematocrit 41 % Low 42-52 Mean Corpuscular Volume 90 um3 80-94 Mean Corpuscular Hemoglob 31 pg 27-31 Mean Corpuscular HGB Cone 34 g/dL 32-36 Redcell Distribution WDTH 13 % 10.5-15 Platelet Count 205 CUMM 150-450 Mean Platelet Volume 9.9 um3 7.4-10.4 Polysegmented Neutrophil 65 % 38-83 Lymphocyte 33 % 25-47 Monocyte 2 % 0-13 Absolute Neutrophil Count 4.2 RBC Morphology NORMAL Laboratory test 05/31/2011 [facility] Erythrocyte Sed 6 MM/HR 0-[address] [place] [address] [phone] C Reactive Protein < 0.5 mg/dL Less Than 0.5 Urine Culture & 10/27/2010 [facility] Urine Culture NG [address] [place] [address] [phone] Comp Metabolic 02/07/2010 [facility] Sodium 138 mmol/L 135- [address] [place] [address] [phone] Potassium 4.1 mmol/L 3.5-5.0 Chloride 102 mmol/L 101-111 Co2 (Carbon Dioxide) 28.0 mmol/L 22-32 Anion Gap 8.0 mmol/L 2-11 27 Glucose 68 mg/dL Low 70-100 28 BUN 12 mg/dL 6-24 Creatinine 0.90 mg/dL 0.50-1.40 One Over Creatinine 1.10 BUN/Creatinine Ratio 13.3 8-20 Calcium 9.4 mg/dL 8.1-9.9 29 Total Protein 6.8 GM/DL 6.2-8.1 Albumin 4.2 GM/DL 3.6-5.4 Globulin 2.6 GM/DL 2-4 Albumin/Globulin Ratio 1.6 1-3 Bilirubin Total 0.7 mg/dL 0.4-1.5 30 Alkaline Phosphatase 48 U/L 39-117 Alt (SGPT) 15 U/L Low 17-63 Ast (Sgot) 20 U/L 12-42 eGFR Non- 95.3 > 60 eGFR 115.3 > 60 31 Urinalysis W/Microscopic 02/07/2010 [facility] Ua Color YELLOW [place] [address] [place] [address] [phone] Appearance-Urine CLEAR Clear Specific Glendo-Ur 1.017 1.010-1.030 Esterase-Urine NEGATIVE Negative Nitrite NEGATIVE Negative Wvtxquoczesp-Fr-TAO NEGATIVE Negative Protein-Urine NEGATIVE Negative PH-Urine 6.0 5-9 Blood-Urine NEGATIVE Negative Ketones-Urine NEGATIVE Negative Bilirubin-Ur NEGATIVE Negative Glucose-Urine NEGATIVE Negative WBC-Urine 0-2 0-5 RBC-Urine 0-2 0-2 Epith Cells-Ur RARE None Bacteria-Urine TRACE None Amorphous Sed-U TRACE None Laboratory test 02/07/2010 [facility] Hemoglobin A1c 5.7 % Less Than [address] [place] [address] [phone] Urine Culture & 02/07/2010 [facility] Urine Culture NG [address] [place] [address] [phone] Urinalysis 07/06/2009 [facility] Ua Color YELLOW Yellow [address] [place] [address] [phone] Appearance-Urine CLEAR Clear Specific Glendo-Ur 1.004 Low 1.010-1.030 Esterase-Urine NEGATIVE Negative Nitrite NEGATIVE Negative Syfmkxyeimwe-Nw-QCW NEGATIVE Negative Protein-Urine NEGATIVE Negative PH-Urine 7.5 5-9 Blood-Urine NEGATIVE Negative Ketones-Urine NEGATIVE Negative Bilirubin-Ur NEGATIVE Negative Glucose-Urine NEGATIVE Negative Comp Metabolic Panel 07/06/2009 [facility] Sodium 136 mmol/L 135-[address] [place] [address] [phone] Potassium 4.0 mmol/L 3.5-5.0 Chloride 100 mmol/L Low 101-111 Co2 (Carbon Dioxide) 29.0 mmol/L 22-32 Anion Gap 7.0 mmol/L 2-11 34 Glucose 79 mg/dL 70-100 35 BUN 12 mg/dL 6-24 Creatinine 0.90 mg/dL 0.50-1.40 One Over Creatinine 1.10 BUN/Creatinine Ratio 13.3 8-20 Calcium 9.2 mg/dL 8.1-9.9 36 Total Protein 6.5 GM/DL 6.2-8.1 Albumin 4.2 GM/DL 3.6-5.4 Globulin 2.3 GM/DL 2-4 Albumin/Globulin Ratio 1.8 1-3 Bilirubin Total 1.0 mg/dL 0.4-1.5 37 Alkaline Phosphatase 57 U/L 39-117 Alt (SGPT) 19 U/L 17-63 Ast (Sgot) 21 U/L 12-42 eGFR Non- 95.7 > 60 eGFR 115.8 > 60 38 Laboratory test 07/06/2009 [facility] Hemoglobin A1c 5.6 % Less Than [address] [place] [address] [phone] Urine Culture & 07/06/2009 [facility] Urine Culture NG [address] [place] [address] [phone] Lyme Western 12/30/2008 [facility] Lyme Disease Negative Negative 41 [facility] [address] [place] [address] Blot [phone] Lyme Disease Igm Western Blot Negative Negative 42 Lyme Disease Interpretation . () 43 1 SEE RESULT BELOW Name: GURDEEP KUMARI : [address]: Flavio Wheatley NP Acct: [id number] Unit: [id number] AGE: 56 Location: [facility] Re10/12/16 SEX: M Status: REG REF SPEC: [id number] FELISHA: 10/12/16-[address]: Flavio Wheatley ENERGY CONSERVATION REPRESENTATIVE REQ: [id number] RECD: 10/12/16 STATUS: COMP _ SOURCE: THROAT SPDESC: ORDERED: Throat Culture COMMENTS: [id number] Procedure Result Reported Site Throat Culture Final 10/14/16- 1002 ML Organism 1 NORMAL ABHINAV Quantity 2+ Throat cultures are clinically indicated to detect the presence of group A strep, arcanobacterium and yeast. In certain cases, predominating organisms will be reported. * ML - MAIN LAB ([facility]) . END OF REPORT * ML=Testing performed at Main Lab DEPARTMENT OF PATHOLOGY, [address] [place] [address] Jared Jones M.D. Director [facility] # [id number] 2 Serologic response to B. burgdorferi infection is not detected, but cannot rule out early infection during which low or undetectable antibody levels to B. burgdorferi may be present. If clinically indicated, a new serum specimen should be submitted in 7-14 days. Test Performed by: [address] [address] Apple Sorter: Jadiel Faulkner II, M.D., Ph.D. 3 SEE RESULT BELOW Name: KENYETTAGURDEEP J : [address]: Shameka Anne MD Acct: [id number] Unit: [id number] AGE: 54 Location: [facility] Re12/14/14 SEX: M Status: REG REF SPEC: [id number] FELISHA: 12/14/[address]: James Anne MD REQ: [id number] RECD: 12/14/14 STATUS: COMP _ SOURCE: BLOOD,VENO SPDESC: ORDERED: Blood Cult Procedure Result Verified Site Aerobic Culture Bottle Final 12/19/14902 ML No Growth Day 5 Anaerobic Culture Bottle Final 12/19/14902 ML No Growth Day 5 * ML - MAIN LAB ([facility]) . END OF REPORT * ML=Testing performed at Main Lab DEPARTMENT OF PATHOLOGY, [address] [place] [address] Jared Jones M.D. Director [facility] # [id number] 4 Acute inflammation: >10.00 5 Serum levels of PSA measured using the Everett Roman DXI Hybritech immunoassay should not be interpreted as absolute evidence of the presence or absence of disease. The PSA value should be used in conjunction with other pertinent clinical diagnostic procedures. A PSA value in the range of 0.1 to 0.6 ng/ml is indeterminate if being used as an indicator of recurrent or residual disease. The values obtained with different assay methods or kits cannot be used interchangeably. 6 Because ethnic data is not always readily available, this report includes an eGFR for both -Americans and non- Americans. The National Kidney Disease Education Program (NKDEP) does not endorse the use of the MDRD equation for patients that are not between the ages of 18 and 70, are , have extremes of body size, muscle mass, or nutritional status, or are non- or non-. According to the National Kidney Foundation, irrespective of diagnosis, the stage of the disease is based on the level of kidney function: Stage Description GFR(mL/min/1.73 m(2)) 1 Kidney damage with normal or decreased GFR 90 2 Kidney damage with mild decrease in GFR 60-89 3 Moderate decrease in GFR 30-59 4 Severe decrease in GFR 15-29 5 Kidney failure <15 (or dialysis) 7 *Ascorbic acid is present which may interfere with detection of blood. 8 SEE RESULT BELOW Name: GURDEEP KUMARI : [address]: Mega Mosquera MD Acct: [id number] Unit: [id number] AGE: 54 Location: [facility] Re10/11/14 SEX: M Status: REG REF SPEC: [id number] FELISHA: 10/11/14-[address]: Mega Mosquera MD REQ: [id number] RECD: 10/11/14897 STATUS: RES _ SOURCE: [facility] FERNANDO SPDESC: ORDERED: Fungal - Other Procedure Result Verified Site Fungal Cult - Other Sources Preliminary 10/18/14- 1414 ML No Growth Week 1 * ML - MAIN LAB ([facility]) . END OF REPORT * ML=Testing performed at Main Lab DEPARTMENT OF PATHOLOGY, [address] [place] [address] Jared Jones M.D. Director [facility] # [id number] 9 SEE RESULT BELOW Name: GURDEEP KUMARI : [address]: Mega Mosquera MD Acct: [id number] Unit: [id number] AGE: 54 Location: [facility] Re10/11/14 SEX: M Status: REG REF SPEC: [id number] FELISHA: 10/11/14-[address] [facility] DR: Mega Mosquera MD REQ: [id number] RECD: 10/11/14125 STATUS: RES _ SOURCE: MISC SOURC SPDESC: ORDERED: Fungal - Other Procedure Result Verified Site Fungal Cult - Other Sources Preliminary 10/25/141443 ML No Growth Week 2 * ML - MAIN LAB ([facility]) . END OF REPORT * ML=Testing performed at Main Lab DEPARTMENT OF PATHOLOGY, [address] [place] [address] Jared Jones M.D. Director [facility] # [id number] 10 SEE RESULT BELOW Name: GURDEEP KUMARI : [address]: Mega Mosquera MD Acct: [id number] Unit: [id number] AGE: 54 Location: [facility] Re10/11/14 SEX: M Status: REG REF SPEC: [id number] FELISHA: 10/11/14-[address]: Mega Mosquera MD REQ: [id number] RECD: 10/11/14 STATUS: RES _ SOURCE: MISC SOUR SPDESC: ORDERED: Fungal - Other Procedure Result Verified Site Fungal Cult - Other Sources Preliminary 11/02/14- 1330 ML No Growth Week 3 * ML - MAIN LAB ([facility]) . END OF REPORT * ML=Testing performed at Main Lab DEPARTMENT OF PATHOLOGY, [address] [place] [address] Jared Jones M.D. Director [facility] # [id number] 11 SEE RESULT BELOW Name: GURDEEP KUMARI : [address]: Mega Mosquera MD Acct: [id number] Unit: [id number] AGE: 54 Location: [facility] Re10/11/14 SEX: M Status: REG REF SPEC: [id number] FELISHA: 10/11/14-[address] [facility] DR: Mega Mosquera MD REQ: [id number] RECD: 10/11/14643 STATUS: COMP _ SOURCE: MISC SOURC SPDESC: ORDERED: Fungal - Other Procedure Result Verified Site Fungal Cult - Other Sources Final 11/08/14- 1335 ML No Growth Week 4 * ML - MAIN LAB ([facility]) . END OF REPORT * ML=Testing performed at Main Lab DEPARTMENT OF PATHOLOGY, [facility] [place], [place] [address] Jared Jones M.D. Director [facility] # [id number] 12 FASTING 13 Desirable <150 Borderline high 150-199 High 200-499 Very High >500 14 Desirable <200 Borderline high 200-239 High >239 15 Low <40 Desirable: 40-60 High: >60 16 Desirable <100 Near Optimal 100-129 Borderline high 130-159 High 160-189 Very High >189 17 FASTING 18 Acute inflammation: >10.00 19 Serologic response to B. burgdorferi infection is not detected, but cannot rule out early infection during which low or undetectable antibody levels to B. burgdorferi may be present. If clinically indicated, a new serum specimen should be submitted in 7-14 days. Test Performed by: [facility] - [address] [address] Apple Sorter: Thomas Hernandez M.D. 20 RUN DATE: 03/18/14 [facility] LAB LIVE PAGE 1 RUN TIME: 9043 [facility] [employer] [place], [place] [address] Specimen Inquiry Name: GURDEEP KUMARI : [address]: Daniel Lechuga MD Acct: [id number] Unit: [id number] AGE: 53 Location: [facility] Re03/17/14 SEX: M Status: REG REF SPEC: [id number] FELISHA: 03/17/[address] [facility] DR: Daniel Lechuga MD REQ: [id number] RECD: 03/17/14 STATUS: ANIKA SAMAYOA DR: James Anne MD _ ORDERED: LEVEL IV FINAL DIAGNOSIS Esophagus, 36 cm., biopsy: A. Squamous mucosa with moderate to severe esophagitis with eosinophils. B. No glandular component identified. COMMENTS: Based on the described distribution of this process reflux esophagitis is favored. CLINICAL HISTORY Abdominal pain. Screening colonoscopy POST-OPERATIVE DIAGNOSIS Esophagus - ringed, furrowed, mild - 28-37 biopsied x2, small hiatal hernia; stomach - normal; duodenum - normal. Screening colonoscopy - one tic cecum, all rest negative. Hiatal hernia, gastroesophageal reflux disease, edematous esophagus biopsied, cecal tic, otherwise normal colon and terminal ileum; history of polyps - 6 years GROSS DESCRIPTION The specimen is received in formalin labeled Gurdeep Kumari, Biopsy Esophagus at 36 cm., and consists of two burton-pink, irregular soft tissue fragments averaging 0.3 x 0.3 x 0.2 cm. Submitted entirely, one cassette. Signed (signature on file) Jared Jones MD 1603 END OF REPORT * ML=Testing performed at Main Lab DEPARTMENT OF PATHOLOGY, [facility] [place], [place] [address] Jared Jones M.D. Director [facility] # [id number] 21 RUN DATE: 03/18/14 [facility] LAB LIVE PAGE 1 RUN TIME: 027 [facility] [employer] [place], [place] [address] Specimen Inquiry Name: GURDEEP KUMARI : [address]: Daniel Lechuga MD Acct: [id number] Unit: [id number] AGE: 53 Location: [facility] Re03/17/14 SEX: M Status: REG REF SPEC: [id number] FELISHA: 03/17/[address] [facility] DR: Daniel Lechuga MD REQ: [id number] RECD: 03/17/14 STATUS: COMP OTHR DR: James Anne MD _ SOURCE: GAS ANTRUM SPDESC: ORDERED: Clotest Procedure Result Verified Site Clotest Final 03/18/14- 0757 ML Clotest Negative END OF REPORT * ML=Testing performed at Main Lab DEPARTMENT OF PATHOLOGY, [address] [place] [address] Jared Jones M.D. Director [facility] # [id number] 22 Low risk: <1.00 Average risk: 1.00-3.00 High risk: >3.00 23 HDL Interpretation: Undesirable: High Risk: Less than 40 MG/DL Desirable: Low Risk: Greater than 60 MG/DL 24 LDL Interpretation: Low Risk Optimal Level: LDL Less than 100 MG/DL Near or Above Optimal: LDL 100-129 MG/DL Borderline High Risk: LDL 130-159 MG/DL High Risk: LDL 160-189 MG/DL Very High Risk: LDL Greater than 189 MG/DL 25 -- REFERENCE VALUE -- 25-HYDROXY D TOTAL (D2+D3) Optimum levels in the normal population are 25-80 Test Performed by: [address] [address] Apple Sorter: Chuck Thomason III, M.D. 26 FINAL: NO GROWTH DAY 2 (<1,000 CFU/mL) 27 Anion gap measurement may be of limited value in the presence of any alkalosis, especially in a combined acid base disorder. . 28 Note change in reference range as of 01/29/08. The change was based on recommendations from the [place] [employer]. 29 Please note change in reference range effective 07 . 30 A metabolite of Naproxen, O-desmethylnaproxen, has been shown to interfere with the [place] method for measuring total bilirubin. Samples from patients who have taken Naproxen have shown spurious elevation in total bilirubin levels. 31 Because ethnic data is not always readily available, this report includes an eGFR for both -Americans and non- Americans. The National Kidney Disease Education Program (NKDEP) does not endorse the use of the MDRD equation for patients that are not between the ages of 18 and 70, are , have extremes of body size, muscle mass, or nutritional status, or are non- or non-. According to the National Kidney Foundation, irrespective of diagnosis, the stage of the disease is based on the level of kidney function: Stage Description GFR(mL/min/1.73 m(2)) 1 Kidney damage with normal or decreased GFR 90 2 Kidney damage with mild decrease in GFR 60-89 3 Moderate decrease in GFR 30-59 4 Severe decrease in GFR 15-29 5 Kidney failure <15 (or dialysis) 32 THERAPEUTIC TARGET FOR THE TREATMENT OF DIABETES MELLITUS PATIENTS IS <7% HBA1C, AND IN SELECTIVE PATIENTS <6.0%. PLEASE REFER TO [place] [employer]ATION DIABETIC CARE GUIDELINES FOR FURTHER INFORMATION. 33 FINAL: NO GROWTH DAY 2 (<1,000 CFU/mL) 34 Anion gap measurement may be of limited value in the presence of any alkalosis, especially in a combined acid base disorder. . 35 Note change in reference range as of 01/29/08. The change was based on recommendations from the [place] [employer]. 36 Please note change in reference range effective 07 . 37 A metabolite of Naproxen, O-desmethylnaproxen, has been shown to interfere with the [place]rass[place] method for measuring total bilirubin. Samples from patients who have taken Naproxen have shown spurious elevation in total bilirubin levels. 38 Because ethnic data is not always readily available, this report includes an eGFR for both -Americans and non- Americans. The National Kidney Disease Education Program (NKDEP) does not endorse the use of the MDRD equation for patients that are not between the ages of 18 and 70, are , have extremes of body size, muscle mass, or nutritional status, or are non- or non-. According to the National Kidney Foundation, irrespective of diagnosis, the stage of the disease is based on the level of kidney function: Stage Description GFR(mL/min/1.73 m(2)) 1 Kidney damage with normal or decreased GFR 90 2 Kidney damage with mild decrease in GFR 60-89 3 Moderate decrease in GFR 30-59 4 Severe decrease in GFR 15-29 5 Kidney failure <15 (or dialysis) 39 THERAPEUTIC TARGET FOR THE TREATMENT OF DIABETES MELLITUS PATIENTS IS <7% HBA1C, AND IN SELECTIVE PATIENTS <6.0%. PLEASE REFER TO [place] [employer] DIABETIC CARE GUIDELINES FOR FURTHER INFORMATION. 40 FINAL: NO GROWTH DAY 2 (<1,000 CFU/mL) 41 IgG band(s) ([place]): p41 42 IgM band(s) ([place]): None Detected 43 Specific serologic response to B. burgdorferi is not detected, but cannot rule out early infection during which low or undetectable antibody levels to B. burgdorferi may be present. If clinically indicated, a new serum specimen should be submitted in 7-14 days. Western blot should only be ordered on specimens that are positive or equivocal by a FDA-licensed Lyme disease antibody screening test (e.g., EIA). CDC criteria require >=5 bands for IgG or >=2 bands for IgM for the Western blot to be considered positive. Test Performed by: [facility] [address] [place] [address] Apple Sorter: Chuck Thomason III, M.D. Procedures Date Code Description Status 02/02/2015 05805 EKG Tracing & Interpretation Completed 01/26/2009 52424 EKG Tracing & Interpretation Completed 07/14/2008 02855 Color Doppler Completed 07/14/2008 46954 Pulse Doppler & Continuous Wave Completed 07/14/2008 63682 Echocardiogram Completed 07/14/2008 62401 ECHO Transthoracic, Real-Time 2D With Doppler And Color Completed Flow 06/22/2008 75398 Treadmill Interp/Report Only Completed 06/22/2008 73322 Treadmill Interp/Report Only Completed 06/22/2008 97389 Stress Test Supervsn W/Out I/R Completed 06/18/2008 56475 Event Monitor/Phys Review/Interp. Completed 05/31/2008 33089 EKG Tracing & Interpretation Completed 11/28/2007 17184 Holter Monitor Completed 11/28/2007 43023 Holter Monitor Completed 11/28/2007 39707 Echocardiogram Completed 11/28/2007 28011 Echocardiogram Completed 11/28/2007 20359 Echocardiogram Completed 11/28/2007 93299 Pulse Doppler & Continuous Wave Completed 11/28/2007 74383 Pulse Doppler & Continuous Wave Completed 11/28/2007 69161 Color Doppler Completed 11/28/2007 89527 Color Doppler Completed 11/28/2007 92822 Color Doppler Completed 11/13/2007 19116 EKG Tracing & Interpretation Completed 11/13/2007 89488 EKG Tracing & Interpretation Completed 09/09/2007 82762589 Colonoscopy Completed 10/11/2006 70534 EKG Tracing & Interpretation Completed 10/11/2006 42485 EKG Tracing & Interpretation Completed 01/18/2006 87832 EKG Tracing & Interpretation Completed 01/18/2006 62015 EKG Tracing & Interpretation Completed 09/12/2005 09338 Color Doppler Completed 09/12/2005 61396 Color Doppler Completed 09/12/2005 91996 Pulse Doppler & Continuous Wave Completed 09/12/2005 13695 Echocardiogram Completed 09/10/2005 25068 ECHO/Stress Completed 09/10/2005 62359 ECHO/Stress Completed 09/10/2005 94728 Stress Test Completed Encounters Type Date Location Provider Dx Diagnosis Office Visit 04/18/2018 Orthopedic Narendra Mcrae, S92.515D Nondisp fx of 11:15a [facility] prox phalanx of l less toe(s), 7thD S92.415A Nondisp fx of proximal phalanx of left great toe, init Office Visit 03/03/2018 3:00p Orthopedic Narendra Clementina, S92.515A Nondisp fx of Services Of MD paulo Sun phalanx of left lesser toe(s), init W22.8xxA Striking against or struck by other objects, init encntr Office Visit 10/12/2016 11:40a [facility] Internal Flavio Wheatley, J02.9 Acute pharyngitis, Medicine - ENERGY CONSERVATION REPRESENTATIVE unspecified [place] K58.0 Irritable bowel syndrome with diarrhea Office Visit 02/02/2015 12:10p [facility] Internal James Aguirre 780.52 Insomnia Latanya Anne M.D.,FACP Unspecified [address] 327.23 Obstructive Sleep Apnea Adult & Pediatric 785.1 Palpitations 530.81 Esophageal Reflux Office Visit 11/30/2014 8:50a [facility] Internal James Aguirre 691.8 Dermatitis Atopic Latanya Anne M.D.,FACP & Related [place] Conditions Other 601.1 Prostatitis Chronic Office Visit 11/19/2014 2:00p [facility] Internal Manuel Flaherty, ENERGY CONSERVATION REPRESENTATIVE 780.79 Malaise And Medicine - Fatigue Other [place] 681.00 Cellulitis & Abscess Finger Unspec Office Visit 10/11/2014 1:00p [facility] Internal Mega Mosquera, 780.79 Malaise And Medicine - [place] M.DSarahi Fatigue Other Rd 601.0 Prostatitis Acute 110.1 Dermatophytosis Nail 530.81 Esophageal Reflux 789.09 Pain Abdominal Other Spec Site Office Visit 07/16/2014 [facility] Internal Mega 487.1 Influenza W/ Other 11:20a Latanya Mosquera M.D. 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 564.1 Irritable Bowel Syndrome 553.3 Hernia Diaphragmatic 278.02 Overweight Office Visit 04/21/2014 4:40p [facility] Internal James Aguirre 716.80 Arthropathy Other Latanya Anne M.D.,FACP Spec Site Unspec [place] V04.81 Need For Prophylactic Vaccination & Inoculation/Influenza Office Visit 12/24/2013 11:30a [facility] Internal James Aguirre 466.0 Bronchitis Acute Latanya Anne M.D.,[facility] [place] Office Visit 10/26/2013 4:00p [facility] Internal James Aguirre 078.2 Sweating Fever Latanya Anne M.D.,[facility] [place] 564.1 Irritable Bowel Syndrome Office Visit 06/24/2012 8:50a [facility] Internal James Aguirre V70.0 Examination Medicine Alina Anne M.D.,[facility] General Medical [place] Routine AT [facility] 553.3 Hernia Diaphragmatic 780.79 Malaise And Fatigue Other Office Visit 06/17/2012 10:50a [facility] Internal James Aguirre 787.99 Digestive Medicine Alina Anne M.D.,[facility] Symptoms Other [place] Office Visit 03/10/2012 11:40a [facility] Internal Sussy 786.2 Cough Latanya Villagomez M.D. [place] Office Visit 02/14/2012 11:40a [facility] Internal Rosanne Chicas, 461.9 Sinusitis Acute Medicine Jazmin Unspec [place] Office Visit 01/16/2012 11:30a [facility] Internal James Aguirre 523.40 Chronic Latanya Anne M.D.,[facility] Periodontitis, [place] Unspecfied 327.23 Obstructive Sleep Apnea Adult & Pediatric 553.3 Hernia Diaphragmatic 733.90 Bone & Cartilage Disorder Unspec Office Visit 06/14/2011 11:50a [facility] Internal James Aguirre 078.2 Sweating Fever Latanya Anne M.D.,[facility] [place] V77.1 Screening Diabetes Mellitus 592.0 Calculus Of Kidney Office Visit 05/31/2011 11:30a DO Not Use Melina Aguirre 078.2 Sweating Fever [place] M.D.,[facility] 599.71 Gross Hematuria Office Visit 05/11/2011 9:40a DO Not Use Melina Chicas, 599.70 Hematuria, AT [facility] Jazmin Unspecified Office Visit 10/27/2010 9:30a DO Not Use [facility] [place] Nurse Visit 788.1 Dysuria AT [facility] [place] Office Visit 09/06/2010 3:20p DO Not Use [employer] James Aguirre 466.0 Bronchitis Acute [place]FACP Office Visit 06/28/2010 3:40p DO Not Use [employer] James Aguirre 600.00 [facility] MDor[facility] Urinary Obstruction & Other Luts 601.1 Prostatitis Chronic V04.81 Need For Prophylactic Vaccination & Inoculation/Influenza Office Visit 03/01/2010 1:20p DO Not Use [employer] Megamonique Marcanoika, 601.9 Prostatitis AT [facility] RebeccaTimothy Unspec 251.1 Hypoglycemia Other Spec Office Visit 02/07/2010 4:00p DO Not Use [employer] [place], 790.6 [facility] Other 599.0 UTI Urinary Tract Infection Site Not Spec Office Visit 07/06/2009 1:20p DO Not Use [employer] AT [place], 786.2 Cough [facility] Jazmin 788.1 Dysuria 790.29 Other Abnormal Glucose Office Visit 05/12/2009 11:40a DO Not Use [employer] James Aguirre 382.02 Otitis Media AT [place] M.D.,[facility] Acute Suppurative Diseases Class Elsewhere 461.9 Sinusitis Acute Unspec 786.09 Dyspnea & Respiratory Abnormalities Other V04.81 Need For Prophylactic Vaccination & Inoculation/Influenza Office Visit 01/26/2009 11:00a [facility] Reynaldo Casper 780.52 Insomnia Jazmin Malloy Unspecified 786.50 Pain Chest Unspec 785.1 Palpitations Office Visit 12/30/2008 8:40a DO Not Use [employer] AT James Aguirre 088.81 Lyme Disease Irwin Anne M.D.,FACP 780.52 Insomnia Unspecified 595.1 Cystitis Chronic Interstitial 564.1 Irritable Bowel Syndrome 471.9 Nasal Polyp Unspec Office Visit 05/31/2008 2:00p [facility] Reynaldo Casper 785.1 Palpitations Jazmin Malloy 786.50 Pain Chest Unspec 785.2 Murmur Cardiac Undiagnosed 780.50 Sleep Disturbance Unspec 427.0 PSVT Paroxysmal Supraventricular Tachycardia Office Visit 02/12/2008 9:40a [facility] Reynaldo Casper 785.1 Palpitations Jazmin Malloy 786.50 Pain Chest Unspec 785.2 Murmur Cardiac Undiagnosed 780.50 Sleep Disturbance Unspec 427.0 PSVT Paroxysmal Supraventricular Tachycardia Office Visit 11/13/2007 8:40a [facility] Reynaldo Casper 785.1 Palpitations Jazmin Malloy 786.50 Pain Chest Unspec 785.2 Murmur Cardiac Undiagnosed Office Visit 10/11/2006 2:40p [facility] Reynaldo Casper 785.1 Palpitations Jazmin Malloy 780.50 Sleep Disturbance Unspec Office Visit 01/18/2006 [facility]reinier Casper 427.0 PSVT Paroxysmal 1:40p Cardiology Jazmin Malloy Supraventricular Tachycardia 785.1 Palpitations Plan of Treatment Future Appointment(s):07/30/2018 3:15 pm - Narendra Mcrae MD at [facility]06/18/2018 - Narendra Mcrae, MDS92.515D Nondisplaced fracture of proximal phalanx of left lesser toeS92.415A Nondisplaced fracture of proximal phalanx of left great toe,New Xrays:Foot Left 3+ VWS, Ordered: Follow up:Follow Up: 6 weeks
[2018-07-03 17:51] LABS: ABS Basophils 0.1 10^3/ul (0-0.2); ABS Eosinophils 0.3 10^3/ul (0-0.6); ABS Lymphocytes 1.9 10^3/ul (1.0-4.8); ABS Monocytes 0.5 10^3/ul (0-0.8); ABS Neutrophils 4.8 10^3/ul (1.5-7.7); ABS Nucleated RBC 0 10^3/ul; Eosinophil % 3.6 %; Hematocrit 46 % (42-52); Hemoglobin 15.2 g/dl (14.0-18.0); Lymphocyte % 25.2 %; Mean Corpuscular HGB Conc 33 g/dl (31-36); Mean Corpuscular Hemoglobin 29 pg (27-31); Mean Corpuscular Volume 89 fL (80-94); Mean Platelet Volume 8.4 fL (7.4-10.4); Nucleated Red Blood Cells % 0; Platelet Count 233 10^3/ul (150-450); Red Blood Count 5.17 10^6/ul (4.00-5.40); Red Cell Distribution Width 14 % (10.5-15); White Blood Count 7.5 10^3/ul (3.5-10.8)
[2018-07-03 18:01] LABS: Activated Partial Thrombo Time 32.8 seconds (26.0-36.3); INR 0.93 (0.77-1.02)
[2018-07-03 18:08] LABS: Albumin 4.4 g/dL (3.2-5.2); Albumin/Globulin Ratio 1.8 (1-3); BUN/Creatinine Ratio 9.5 (8-20); Calcium 9.4 mg/dL (8.6-10.3); EGFR Non-African American 94.2 (>60); Globulin 2.5 g/dL (2-4); Magnesium 2.2 mg/dL (1.9-2.7); Potassium 4.1 mmol/L (3.5-5.0); Total Bilirubin 0.7 mg/dL (0.2-1.0); Total Protein 6.9 g/dL (6.4-8.9)
[2018-07-03 18:12] LABS: CKMB ng/mL 2.7 ng/mL (0.6-6.3)
[2018-07-03 18:57] LABS: T4, Total 6.72 g/dL (6.09-12.23)
[2018-07-03 19:01] LABS: TSH (Thyroid Stimulating Horm) 1.14 mcIU/mL (0.34-5.60)
[2018-07-03] MEDS ORDERED: Metoprolol Tartrate TAB* 25 MG PO ONE (23:52)
[2018-07-04 00:56] VITALS: BP 120/78
== END 2018-07-04 00:54 | disposition home or self-care (01) ==
LOC: ED 16:32
DX: R07.9 Chest pain, unspecified (principal); R06.02 Shortness of breath; R00.2 Palpitations; R03.0 Elevated blood-pressure reading, without diagnosis of hypertension; Z86.79 Personal history of other diseases of the circulatory system
CPT/HCPCS: 36415; 71045; 80053; 82550; 82553; 83605; 83735; 83880; 84436; 84443; 84484; 85025; 85379; 85610; 85730; 93005; 99284; A9270-GY